=== PATIENT | female | born 1995 | race Caucasian/White ===

== ENCOUNTER 2018-09-21 23:04 | Emergency (ER) | payer OTHER ==
[~2018-09-21] VITALS: Ht 160 cm; Wt 64.3 kg
[2018-09-21 23:08] VITALS: Ht 160 cm; Wt 64.3 kg
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
[2018-09-22] MEDS ORDERED: KETOROLAC 30 MG INJ IM STA (02:42)
[2018-09-22] MEDS ORDERED: IBUP-1542 PO (04:10)
[2018-09-22] MEDS ORDERED: CYCL10TA7 PO (04:11)
[2018-09-22 05:54] VITALS: BP 111/66; PULSE 86; RESP 17
== END 2018-09-22 05:54 | disposition home or self-care (01) ==
LOC: FTE 23:04
DX: S20.219A Contusion of unspecified front wall of thorax, initial encounter (principal); M62.838 Other muscle spasm; V89.2XXA Person injured in unspecified motor-vehicle accident, traffic, initial encounter
CPT/HCPCS: 71046; 72040; 81025; 96372; J1885; Z7502